=== PATIENT | male | born 1940 | race Caucasian/White ===

== ENCOUNTER → 2016-09-19 | Outpatient (CLI) | payer MEDICARE ==
--- NOTE | 2016-09-19 22:19 | US ---
EXAMINATION TYPE: US thyroid st tissue head/neck DATE OF EXAM: 09/19/2016 4:00 PM COMPARISON: NONE CLINICAL HISTORY: R69.1 LYMPHADENOPATHY. Patient stated has swelling at submandibular level x years w ith increased swelling x several months; voice changes; patient is unaware of having any infectious p rocesses. TECHNOLOGIST IMPRESSION: Multiple hypoechoic nodes are noted inferior to right submandibular gland w ith largest = 1.1 x 0.9 x 0.5cm. One normal appearing lymph node is noted inferior to left submandibu lar gland = 1.4 x 0.9 x 0.7cm with echogenic hilum. Bilateral thyroid gland was only imaged to asses s for any large nodules due to patient's c/o swelling. Lymph nodes are noted at area of clinical concern in right neck. There is not distinct visualization of normal fatty hilum on first lymph node identified. Last 2 images show homogeneous appearing left t hyroid lobe. Images in middle of exam show fairly normal-appearing right thyroid lobe. IMPRESSION: A slightly prominent suspicious lymph node right submandibular gland level is present. Given patient' s history inflammatory change or infectious process is suspected. Neoplasm is not entirely excluded. If lesion does not resolve further investigation with contrast-enhanced neck CT would be advised.
== END | disposition home or self-care (01) ==
LOC: RADUSWWP 15:39
PROVIDERS: ATTEND Family Medicine
DX: R59.1 Generalized enlarged lymph nodes (principal)
CPT/HCPCS: 76536

== ENCOUNTER → 2016-10-02 | Outpatient (CLI) | payer MEDICARE ==
[2016-10-02 18:42] LABS: Blood Urea Nitrogen 23 mg/dL (9-20); Non-African American GFR(MDRD) >60 (>60 ml/min/1.73 sqM)
--- NOTE | 2016-10-02 20:06 | CT ---
EXAMINATION TYPE: CT soft tissue neck w con DATE OF EXAM: 10/02/2016 7:22 PM COMPARISON: NONE HISTORY: Bilateral neck swelling and pressure CT DLP: mGycm Automated exposure control for dose reduction was used. Technique Multiple axial sections were obtained from the level of the top of the orbits to the aortic arch with intravenous contrast. The IV contrast was Omnipaque 100 mL. FINDINGS: There is fairly normal aeration of the visualized paranasal sinuses. Parotid glands are symmetric. Weeks bmandibular salivary glands are symmetric. Epiglottis appears normal. Tonsils and adenoids are within normal limits. Exam is limited by metal artifact from the fillings. There is no evidence of a pharyn geal mass. Subglottic trachea appears normal. Thyroid gland is symmetric. There is normal contrast op acification of the carotid arteries and jugular veins. There is bilateral opacification of the verteb ral arteries. There are spondylotic changes in the mid and lower cervical spine. I see no focal bone destruction. There are a few anterior triangle cervical lymph nodes that measure up to 1 cm. I see no adenopathy. IMPRESSION: Spondylotic changes in the cervical spine. No discrete neck mass.
== END | disposition home or self-care (01) ==
LOC: RADCTMAIN 18:03
PROVIDERS: ATTEND Family Medicine
DX: R59.1 Generalized enlarged lymph nodes (principal)
CPT/HCPCS: 82565; 84520; 70491; 36415; Q9967

== ENCOUNTER → 2016-10-19 | Outpatient (CLI) | payer MEDICARE ==
[2016-10-19 14:51] LABS: Blood Urea Nitrogen 20 mg/dL (9-20); Non-African American GFR(MDRD) >60 (>60 ml/min/1.73 sqM)
--- NOTE | 2016-10-19 15:47 | CT ---
EXAMINATION TYPE: CT chest w con DATE OF EXAM: 10/19/2016 3:23 PM COMPARISON: CT neck 10/02/[address] abdomen 09/28/2015 HISTORY: 76-year-old male has no complaints at time of study. Follow up study for multiple lung nodu les seen on neck CT. TECHNIQUE: Contiguous axial scanning of the chest after the administration of 100 mL of Omnipaque 300 . Coronal/sagittal reconstructions performed. CT DLP: 400mGycm. Automatic exposure control utilized for a dose reduction. FINDINGS: The heart is normal size without pericardial effusion. Coronary vessel calcifications are present and are remarkable for coronary artery disease. 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 There is conventional arterial vessel branching anato my. Mild aneurysm of the upper descending thoracic aorta as well at 3.1 cm. The descending thoracic a hollis is otherwise slightly tortuous. Large caliber to the main right pulmonary artery at 2.7 cm. Left main pulmonary artery measures at th e upper limits of normal. Scattered small mediastinal lymph nodes are present. No thoracic lymphadenopathy by CT size criteria. Mild dependent atelectasis along the posterior lungs. 5 mm right mid lung pulmonary nodule axial image 34 is stable. 9 mm posterior right midlung pulmonary nodule axial image 34 is stable. The previous pulmonary nodule on 09/28/2015 is remeasured. 5 mm pulmonary nodule peripheral right lower lobe axial image 37 is stable. Some hazy reticular densities in the lower lungs could represent interstitial scarring in the absence of any acute respiratory symptoms. Visualized upper abdomen shows a 3 mm nonobstructive left renal calculus. Bones: Multilevel endplate spondylosis and degenerative disc disease throughout the thoracic spine. IMPRESSION: 1. A few pulmonary nodules in the right lung measuring up to 9 mm are stable from 09/28/2015. Addition al one-year follow-up can be performed to document 2 years of stability which would support a benign etiology. 2. 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 3. Correlate for possible pulmonary arterial hypertension. 4. A 3 mm nonobstructive left renal calculus.
== END | disposition home or self-care (01) ==
LOC: RADCTMAIN 14:17
PROVIDERS: ATTEND Family Medicine
DX: R91.8 Other nonspecific abnormal finding of lung field (principal); I71.2 Thoracic aortic aneurysm, without rupture
CPT/HCPCS: 82565; 84520; 71260; 36415; Q9967